=== PATIENT | male | born 1965 | race Caucasian/White ===

== ENCOUNTER 2018-02-02 21:36 | Emergency (ER) | payer SELFPAY ==
[~2018-02-02] VITALS: Ht 172.7 cm; Wt 87.9 kg
[~2018-02-02 21:36] MED LIST: CIPR500T4 PO
[2018-02-02 21:39] VITALS: BP 123/73; PULSE 79; RESP 18; TEMP 97.8; O2SAT 97
--- NOTE | 2018-02-02 21:59 | PD ---
HPI Chief Complaint: Laceration/Skin Injury Time Seen by Provider: 21:55 Travel History International Travel<30 days: No Contact w/Intl Traveler<30days: No Traveled to known affect area: No History of Present Illness HPI 53-year-old male presents to the emergency department by private transportation for tetanus booster. Patient states last evening around midnight he working with his truck and as he was unloading debris was scraped across the left parietal scalp and left lateral eyebrow with some rebar. Patient states he immediately irrigated the sites with water and used antiseptic cleansing agent and his first aid kit. [facility] not [facility] his [facility] status and presents now for tetanus booster. Patient denies other concerns or complaints. Pain is 0/10 intensity. PFSH Past Medical History Narrative Medical Left knee surgery cholecystectomy dyslipidemia; nursing notes reviewed Cancer: No Cardiovascular Problems: No Diabetes: No Endocrine: No Genitourinary: No Hepatitis: No Hiatal Hernia: No Immune Disorder: No Musculoskeletal: No Neurologic: No Respiratory: No Thyroid Disease: No Past Surgical History Joint Replacement: No Pacemaker: No Social History Tobacco Use: No Allergies-Medications (Allergen,Severity, Reaction): Coded Allergies: No Known Allergies (Unverified Adverse Reaction, Unknown, 02/02/18) Reported Meds & Prescriptions Reported Meds & Active Scripts Active Reported Cipro (Ciprofloxacin HCl) 500 Mg Tab 500 Mg PO BID Review of Systems Except as stated in HPI: all other systems reviewed are Neg Physical Exam Narrative GENERAL: Well-developed well-nourished male no acute distress no respiratory distress SKIN: Warm and dry. Superficial abrasion to the left frontal parietal scalp without redness induration bleeding or drainage and nontender to palpation; small subcentimeter ulises abrasion to the left eyebrow no redness no induration no drainage nontender. HEAD: Normocephalic. EYES: No scleral icterus. No injection or drainage. NECK: Supple, trachea midline. No JVD or lymphadenopathy. CARDIOVASCULAR: Regular rate and rhythm without murmurs, gallops, or rubs. RESPIRATORY: Breath sounds equal bilaterally. No accessory muscle use. Data Data Last Documented VS Vital Signs Date Time Temp Pulse Resp B/P (MAP) Pulse Ox O2 Delivery O2 Flow Rate FiO2 02/02/18 21:39 97.8 79 18 123/73 (90) 97 Orders Orders Tetanus/Diphtheria Tox Adult (Tetanus/Di (02/02/18 22:00) MDM Medical Decision Making Medical Screen Exam Complete: Yes Emergency Medical Condition: Yes Medical Record Reviewed: Yes Differential Diagnosis Abrasion, tetanus booster Narrative Course Patient has abrasion injury to scalp and eyebrow approximately 24 hours old sustained by Rebar while at work; unknown tetanus status will update tetanus booster patient is continue keep site clean and dry as he has been doing and follow-up with his provider through the [facility]. Diagnosis Primary Impression: Need for tetanus booster Referrals: [facility] call for appointment Patient Instructions: General Instructions Additional Instructions: Follow wound care directions Return to the emergency department for fever pain swelling drainage or any concerns Follow-up with your primary care provider as needed Med/Other Pt SpecificInfo: No Meds Exist/No RX given Disposition: 01 DISCHARGE HOME Condition: Stable Marly Gibson MD February 02, 2018 21:59
[2018-02-02] MEDS ORDERED: TETANUS/DIPHTHERIA TOXOID ADULT 0.5 ML VIAL IM ONE (22:00)
== END 2018-02-02 22:23 | disposition home or self-care (01) ==
LOC: PHED 21:36
DX: S00.01XA Abrasion of scalp, initial encounter (principal); S00.212A Abrasion of left eyelid and periocular area, initial encounter; W26.8XXA Contact with other sharp object(s), not elsewhere classified, initial encounter; E78.5 Hyperlipidemia, unspecified; Z23 Encounter for immunization
CPT/HCPCS: 90471; 90714